=== PATIENT | female | born 1980 | race Caucasian/White ===

== ENCOUNTER 2017-06-29 06:45 | Emergency (ER) | payer MEDICAID ==
[~2017-06-29] VITALS: Ht 165.1 cm; Wt 72.6 kg
[2017-06-29 07:35] LABS: BASOPHIL % 1.1 % (0-2); PLATELET COUNT 265 x10^3mcL (130-400); RED CELL DISTRIBUTION WIDTH 14.1 % (11.5-14.5)
[2017-06-29 08:05] LABS: CALCIUM 8.9 mg/dL (8.5-10.1); CARBON DIOXIDE 26.9 mmol/L (21-32); CHLORIDE SERUM 106 mmol/L (98-107); CREATININE SERUM 0.7 mg/dL (0.6-1.0); GFR1 > 60 mL/min; GLUCOSE SERUM 97 mg/dL (74-106); POTASSIUM SERUM 4.3 mmol/L (3.5-5.1); SODIUM SERUM 141 mmol/L (136-145)
[2017-06-29 08:48] VITALS: BP 111/82
== END 2017-06-29 09:02 | disposition home or self-care (01) ==
LOC: ED 06:45
PROVIDERS: Emergency Medicine
DX: R21 Rash and other nonspecific skin eruption (principal)
CPT/HCPCS: J2930; J7030; J7512; Q0163

== ENCOUNTER 2017-10-18 10:56 | Emergency (ER) | payer MEDICAID ==
[~2017-10-18] VITALS: Ht 165.1 cm; Wt 76.7 kg
[2017-10-18 11:06] VITALS: Ht 165.1 cm; Wt 76.7 kg
[2017-10-18 12:04] VITALS: BP 136/76
== END 2017-10-18 12:05 | disposition home or self-care (01) ==
LOC: ED 10:56
DX: K08.89 Other specified disorders of teeth and supporting structures (principal)

== ENCOUNTER 2019-06-30 20:07 | Emergency (ER) | payer MEDICAID ==
[~2019-06-30] VITALS: Ht 167.6 cm; Wt 83.0 kg
[2019-06-30 20:16] VITALS: Ht 167.6 cm; Wt 83.0 kg
[2019-06-30 23:12] VITALS: BP 126/79
== END 2019-06-30 23:36 | disposition home or self-care (01) ==
LOC: ED 20:07
DX: L05.91 Pilonidal cyst without abscess (principal); Z90.49 Acquired absence of other specified parts of digestive tract
CPT/HCPCS: J2920

== ENCOUNTER 2019-08-28 18:47 | Emergency (ER) | payer MEDICAID ==
[~2019-08-28] VITALS: Ht 165.1 cm; Wt 84.8 kg
[2019-08-28 19:13] VITALS: Ht 165.1 cm; Wt 84.8 kg
[2019-08-28 20:00] VITALS: BP 127/69
[2019-08-28 20:13] LABS: BASOPHIL % 0.6 % (0-2); PLATELET COUNT 250 x10^3mcL (130-400)
[2019-08-28 20:31] LABS: CALCIUM 9.2 mg/dL (8.5-10.1); CARBON DIOXIDE 26.5 mmol/L (21-32); CHLORIDE SERUM 105 mmol/L (98-107); CREATININE SERUM 0.6 mg/dL (0.6-1.0); GFR1 > 60 mL/min; GLUCOSE SERUM 82 mg/dL (74-106); SODIUM SERUM 140 mmol/L (136-145)
[2019-08-28 20:36] LABS: ALBUMIN 4.1 g/dL (3.4-5.0); ALKALINE PHOSPHATASE 84 U/L (46-116); ALT/SGPT 45 U/L (14-59); AST/SGOT 23 U/L (15-37); BILIRUBIN TOTAL 0.4 mg/dL (0.20-1.00); TOTAL PROTEIN, SERUM 7.7 g/dL (6.4-8.2)
== END 2019-08-28 21:10 | disposition home or self-care (01) ==
LOC: ED 18:47
PROVIDERS: Emergency Medicine
DX: K52.9 Noninfective gastroenteritis and colitis, unspecified (principal); Z90.49 Acquired absence of other specified parts of digestive tract; R21 Rash and other nonspecific skin eruption

== ENCOUNTER 2020-07-12 19:11 | Emergency (ER) | payer MEDICAID, SELFPAY ==
[~2020-07-12] VITALS: Ht 167.6 cm; Wt 81.6 kg
[2020-07-12 19:12] VITALS: BP 123/81; Ht 167.6 cm; Wt 81.6 kg
== END 2020-07-12 20:47 | disposition home or self-care (01) ==
LOC: ED 19:11
DX: O26.891 Other specified pregnancy related conditions, first trimester (principal); R09.89 Other specified symptoms and signs involving the circulatory and respiratory systems; Z20.828 Contact with and (suspected) exposure to other viral communicable diseases; Z90.49 Acquired absence of other specified parts of digestive tract; Z3A.01 Less than 8 weeks gestation of pregnancy
CPT/HCPCS: U0003